=== PATIENT | male | born 1985 | race Caucasian/White ===

== ENCOUNTER 2017-11-11 09:16 | Emergency (ER) | payer OTHER ==
[~2017-11-11] VITALS: Ht 188 cm; Wt 72.1 kg
[2017-11-11] MEDS ORDERED: NORCO 5-325 TA1 EACH PO (10:29)
== END 2017-11-11 10:52 | disposition home or self-care (01) ==
LOC: ED 09:16
PROC: 0HQGXZZ Repair Left Hand Skin, External Approach (ICD-10-PCS; principal; 2017-11-11)
DX: S61.211A Laceration without foreign body of left index finger without damage to nail, initial encounter (principal); W26.0XXA Contact with knife, initial encounter; F17.200 Nicotine dependence, unspecified, uncomplicated
CPT/HCPCS: 12002; 90471; 90715; 99283

== ENCOUNTER 2018-11-26 14:11 | Emergency (ER) | payer OTHER ==
[~2018-11-26] VITALS: Ht 188 cm; Wt 75.3 kg
[~2018-11-26 14:11] MED LIST: NORCO 5-325 TA1 EACH PO
== END 2018-11-26 15:13 | disposition home or self-care (01) ==
LOC: ED 14:11
DX: S61.012A Laceration without foreign body of left thumb without damage to nail, initial encounter (principal); W26.0XXA Contact with knife, initial encounter; F17.200 Nicotine dependence, unspecified, uncomplicated
CPT/HCPCS: 12002; 99282-25

== ENCOUNTER 2020-04-12 16:13 | Emergency (ER) | payer OTHER ==
[~2020-04-12] VITALS: Ht 188 cm; Wt 75.3 kg
== END 2020-04-12 16:26 | disposition home or self-care (01) ==
LOC: ED 16:13
DX: R11.2 Nausea with vomiting, unspecified (principal)